=== PATIENT | female | born 1985 | race Caucasian/White ===

== ENCOUNTER 2017-02-21 14:33 | Emergency (ER) | payer OTHER ==
[2017-02-21 15:19] VITALS: BP 116/75
--- NOTE | 2017-02-21 15:30 | UC ---
Lower Extremity/Ankle HPI - HPI Summary HPI Summary: dropped a 40 lb box of cat litter on right foot last night - History of Current Complaint Chief Complaint: UCLowerExtremity Stated Complaint: RIGHT FOOT PAIN Time Seen by Provider: 02/21/17 15:24 Hx Obtained From: Patient Hx Last Menstrual Period: january 05, 2015 is on lupron ?: No Onset/Duration: Sudden Onset, Lasting Days - 1, Still Present Severity Initially: Moderate Severity Currently: Moderate Pain Intensity: 6 Pain Scale Used: 0-10 Numeric Aggravating Factor(s): Standing, Ambulation Alleviating Factor(s): Rest, Elevation, Ice, OTC Meds Able to Bear Weight: Yes - with pain - Allergies/Home Medications Allergies/Adverse Reactions: Allergies Allergy/AdvReac Type Severity Reaction Status Date / Time Sulfa Drugs Allergy Severe rash, edema Verified 02/21/17 15:19 Amoxicillin [From Augmentin] Allergy Rash Verified 02/21/17 15:19 Clavulanic Acid Allergy Rash Verified 02/21/17 15:19 [From Augmentin] PMH/Surg Hx/FS Hx/Imm Hx 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 - Surgical History Surgical History: Yes Surgery Procedure, Year, and Place: cyst removal surgeries R.T history - Family History Known Family History: Positive: Cardiac Disease, Hypertension, Diabetes - Social History Occupation: Employed Full-time Lives: With Family Alcohol Use: None Substance Use Type: None Smoking Status (MU): Heavy Every Day Tobacco Smoker Type: Cigarettes Amount Used/How Often: 1/2 ppd Have You Smoked in the Last Year: Yes Cessation Counseling: Counseled 3+Min - 10 Min - Immunization History Most Recent Influenza Vaccination: 2012 Review of Systems Constitutional: Negative Skin: Negative Eyes: Negative ENT: Negative Respiratory: Negative Cardiovascular: Negative Gastrointestinal: Negative Genitourinary: Negative Motor: Negative Neurovascular: Negative Musculoskeletal: Arthralgia - right foot 1/2 MT Neurological: Negative Psychological: Negative All Other Systems Reviewed And Are Negative: Yes Physical Exam Triage Information Reviewed: Yes Appearance: Well-Appearing, No Pain Distress, Well-Nourished Vital Signs: Initial Vital Signs Temp 98.7 F 02/21/17 15:13 Pulse 86 02/21/17 15:13 Resp 16 02/21/17 15:13 BP 116/75 02/21/17 15:13 Pulse Ox 100 02/21/17 15:13 Vital Signs Reviewed: Yes Eye Exam: Normal Eyes: Positive: Conjunctiva Clear ENT Exam: Normal ENT: Positive: Normal ENT inspection, Hearing grossly normal. Negative: Nasal congestion, Nasal drainage, TMs normal, Tonsillar swelling, Tonsillar exudate, Trismus, Muffled/hoarse voice Dental Exam: Normal Neck exam: Normal Neck: Positive: Supple, Nontender Respiratory Exam: Normal Respiratory: Positive: Chest non-tender, No respiratory distress, No accessory muscle use Cardiovascular Exam: Normal Cardiovascular: Positive: RRR, No Murmur, Pulses Normal, Brisk Capillary Refill Musculoskeletal Exam: Normal Musculoskeletal: Positive: Strength Intact, ROM Intact, No Edema Neurological Exam: Normal Neurological: Positive: Alert, Muscle Tone Normal Psychological Exam: Normal Skin Exam: Normal Diagnostics - Radiology No standard instances Xray Interpretation: No Acute Changes Radiology Interpretation Completed By: Radiologist Lower Extremity Course/Dx - Course Course Of Treatment: rice, ibuprofen, work restrictions, firm shoe, follow with pcp prn - Differential Dx/Diagnosis Differential Diagnosis/HQI/PQRI: Contusion, Fracture (Closed), Sprain, Strain Provider Diagnoses: Right foot contusion, nicotine dependant Discharge - Discharge Plan Condition: Stable Disposition: HOME Patient Education Materials: Ibuprofen (By mouth), Foot Contusion (ED), RICE Therapy (ED) Forms: *Work Release Referrals: Boubacar Richards MD [Primary Care Provider] - If Needed
[2017-02-21] MEDS ORDERED: Ibuprofen TAB* 600 MG PO ONE (15:31)
--- NOTE | 2017-02-21 16:07 | RAD ---
Indication: First and second metatarsal pain following crush injury. Comparison: None. Technique: AP, lateral, and oblique views RIGHT foot. REPORT AND IMPRESSION: Negative for fracture or malalignment. No significant arthropathic change evident. Soft tissue swelling over the dorsal and plantar aspects of the forefoot.
== END 2017-02-21 16:25 | disposition home or self-care (01) ==
LOC: UCCORT 14:33
DX: S90.31XA Contusion of right foot, initial encounter (principal); W20.8XXA Other cause of strike by thrown, projected or falling object, initial encounter; Y93.9 Activity, unspecified; Y92.9 Unspecified place or not applicable; Z88.1 Allergy status to other antibiotic agents; Z88.2 Allergy status to sulfonamides; F17.210 Nicotine dependence, cigarettes, uncomplicated; Z71.6 Tobacco abuse counseling
CPT/HCPCS: 99212; A9270-GY; G0463

== ENCOUNTER 2018-10-28 08:45 | Emergency (ER) | payer BC, OTHER ==
[2018-10-28 09:04] VITALS: BP 144/84
--- NOTE | 2018-10-28 09:06 | UC ---
FLU HPI - HPI Summary HPI Summary: 33 y/o female presents to the urgent care c/o nasal congestion w/ yellowish nasal discharge, GREEN, fever, chill, body aches, w/ a dry cough and her chest feels like burning since Sunday10/25/2018. Pt states her children have similar symptoms. He hasn;t had the flu vaccines this yesr. She has taking Dayquill PO to alleviate symptoms. Pt has a fever of 101.8F yesterday. Pt denies SOB, wheezing, chest pain, abdominal pain, chest pain, N/V/D. Pain is 4/10 - History of Current Complaint Chief Complaint: UCGeneralIllness Stated Complaint: COUGH,FEVER,CHILLS Time Seen by Provider: 10/28/18 09:05 Hx Obtained From: Patient Hx Last Menstrual Period: current ?: No Onset/Duration: Gradual Onset, Lasting Days - 2 days, Still Present, Worse Since - today Severity Currently: Mild Severity Initially: Moderate Pain Intensity: 4 - body aches Pain Scale Used: 0-10 Numeric Associated Signs & Symptoms: Positive: Fever, T Max - 101.8F, Myalgia, Cough - dry, Nasal Congestion - yellowish nasal discharge, Headache. Negative: Sore Throat, Vomiting, Diarrhea - Risk Factors Influenza Risk Factors: Negative - Allergy/Home Medications Allergies/Adverse Reactions: Allergies Allergy/AdvReac Type Severity Reaction Status Date / Time amoxicillin [From Augmentin] Allergy Intermediate Rash Verified 10/28/18 09:05 clavulanic acid Allergy Intermediate Rash Verified 10/28/18 09:05 [From Augmentin] Sulfa (Sulfonamide Allergy Intermediate Rash, edema Verified 10/28/18 09:04 Antibiotics) Home Medications: Home Medications Cyclobenzaprine TAB* [Flexeril 10 MG TAB*] 10 mg PO Q6HR 10/28/18 [History Confirmed 10/28/18] PMH/Surg Hx/FS Hx/Imm Hx - Additional Past Medical History Additional PMH: Hidriadenitis suppurative Previously Healthy: Yes - Surgical History Surgical History: Yes Surgery Procedure, Year, and Place: cyst removal surgeries R.T history - Family History Known Family History: Positive: Cardiac Disease, Hypertension, Diabetes - Social History Occupation: Employed Full-time Lives: With Family Alcohol Use: None Substance Use Type: None Smoking Status (MU): Heavy Every Day Tobacco Smoker Type: Cigarettes Amount Used/How Often: 1/2 ppd Have You Smoked in the Last Year: Yes - Immunization History Most Recent Influenza Vaccination: 2012 Review of Systems All Other Systems Reviewed And Are Negative: Yes Constitutional: Positive: Fever, Chills, Fatigue, Other - body ahces Skin: Positive: Negative Eyes: Positive: Negative ENT: Positive: Nasal Discharge - yellowish, Sinus Congestion, Sinus Pain/ Tenderness Respiratory: Positive: Cough - dry Cardiovascular: Positive: Negative Gastrointestinal: Positive: Negative Genitourinary: Positive: Negative Motor: Positive: Negative Neurovascular: Positive: Negative Musculoskeletal: Positive: Myalgia Neurological: Positive: Headache Psychological: Positive: Negative Is Patient Immunocompromised?: No Physical Exam - Summary Physical Exam Summary: VITAL SIGNS: Reviewed. GENERAL: Patient is a well developed and nourished obese female who is sitting comfortable in the examining table. Patient is not in any acute respiratory distress. HEAD AND FACE: No signs of trauma. No ecchymosis, hematomas or skull depressions. No sinus tenderness. EYES: PERRLA, EOMI x 2, No injected conjunctiva, no nystagmus. No photophobia. EARS: Hearing grossly intact. Ear canals and tympanic membranes are within normal limits. Nose: edematous and erythematous nasal mucosa w/ clear nasal discharge. MOUTH: Positive no erythema, no tonsillar enlargement. Uvula in midline. NECK: Supple, trachea is midline, Positive anterior cervical lymphadenopathy, no JVD, no carotid bruit, no c-spine tenderness, neck with full ROM. No meningeal signs, no Kernig's or brudzinskis signs. CHEST: Symmetric, no tenderness at palpation LUNGS: Clear to auscultation bilaterally. No wheezing or crackles. CVS: Regular rate and rhythm, S1 and S2 present, no murmurs or gallops appreciated. ABDOMEN: Soft, non-tender. No signs of distention. No rebound no guarding, and no masses palpated. Bowel sounds are normal. EXTREMITIES: FROM in all major joints, no edema, no cyanosis or clubbing. NEURO: Alert and oriented x 3. No acute neurological deficits. Speech is normal and follows commands. SKIN: Dry and warm Triage Information Reviewed: Yes Vital Signs: Initial Vital Signs Temp 97.3 F 10/28/18 09:00 Pulse 123 10/28/18 09:00 Resp 20 10/28/18 09:00 BP 144/84 10/28/18 09:00 Pulse Ox 99 10/28/18 09:00 Flu Course/Dx - Course Course Of Treatment: 33 y/o female presents to the urgent care c/o nasal congestion w/ yellowish nasal discharge, GREEN, fever, chill, body aches, w/ a dry cough and her chest feels like burning since Sunday10/25/2018. Pt states her children have similar symptoms. He hasn;t had the flu vaccines this yesr. She has taking Dayquill PO to alleviate symptoms. Pt has a fever of 101.8F yesterday. Pt denies SOB, wheezing, chest pain, abdominal pain, chest pain, N/V/ D. Pain is 4/10 Hx obtained. Pt w/ viral syndrome on examination. Influenza A&B ordered: result: negative. Pt Rx Tamiflu PO and ibuprofen PO to alleviates symptoms. Advised on hand washing. Pt advised to rest, increase fluid intake, eat well and avoid strenuous exercise. If symptoms do not improve or worsen advised to return to the urgent care or f/u with her PCP for further evaluation and treatment. Pt's BP is elevated today advised to decrease salt in diet, monitor BP and f/u with PCP for further management. Pt understood and agreed with plan of care. - Differential Dx/Diagnosis Differential Diagnosis/HQI/PQRI: Bronchitis, Influenza, Upper Respiratory Infection, Other - sinusitis Provider Diagnosis: Acute viral syndrome, Elevated BP without diagnosis of hypertension Discharge - Sign-Out/Discharge Documenting (check all that apply): Patient Departure - D/C home All imaging exams completed and their final reports reviewed: No Studies - Discharge Plan Condition: Stable Disposition: HOME Prescriptions: Ibuprofen TAB* [Motrin TAB* 600 MG] 600 mg PO Q6H PRN #30 tab PRN Reason: Fever Oseltamivir CAP* [Tamiflu CAP*] 75 mg PO BID #10 cap Patient Education Materials: Viral Syndrome (ED), Low-Sodium Diet (ED) Forms: *Work Release Referrals: Boubacar Richards MD [Primary Care Provider] - 3 Days Additional Instructions: 1- Please take the full course of the antiviral to avoid resistance. Encourage hand washing and wear a mask to avoid spreading. 2-Please Ibuprofen PO q6-8hrs prn as instructed after meals to alleviate fever , and GREEN. Increase fluid intake, eat well, rest and avoid strenuous exercise 3-If symptoms do not improve or worsen please return to the urgent care or f/u with your PCP in 3 days for further evaluation and treatment. 4-Your BP is elevated today. please decrease salt in your diet, monitor BP and if it continues to be elevated please f/u with your PCP for further management - Billing Disposition and Condition Condition: STABLE Disposition: Home
== END 2018-10-28 09:59 | disposition home or self-care (01) ==
LOC: UCCORT 08:45
DX: R03.0 Elevated blood-pressure reading, without diagnosis of hypertension (principal); B34.9 Viral infection, unspecified; Z88.0 Allergy status to penicillin; Z88.2 Allergy status to sulfonamides; F17.210 Nicotine dependence, cigarettes, uncomplicated
CPT/HCPCS: 99212; G0463